=== PATIENT | male | born 1965 | race Caucasian/White ===

== ENCOUNTER 2016-11-06 11:48 | Emergency (ER) | payer OTHER ==
[~2016-11-06] VITALS: Ht 162.6 cm; Wt 73.3 kg
[2016-11-06 11:55] VITALS: TEMP 36.9; Ht 162.6 cm; Wt 73.3 kg
--- NOTE | 2016-11-06 12:33 | EMERGENCY ROOM VISIT NOTE ---
History Report prepared by Kassie: Denisa Allison Under the Supervision of: Dr. Sorin Brunner M.D. First contact with patient: 12:17 Chief Complaint: DIZZY Stated Complaint: DIZZY Nursing Triage Summary: PT ambulatory to triage states he went to work and around 1000 he became sweaty and shakey. Pt associated dizziness at the same time. Pt cheeks are flushed. Pt fiance states "he vegges in and out and it speech is slurred, well slow, he doesn't have his teeth in" Pt states he has not eaten today. Did have water. Denies DM History of Present Illness The patient is a 51 year old male who presents to the Emergency Room with complaints of sudden dizziness that began this morning while at work. 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 He states that began feeling wobbly and near syncopal. The patient notes that his symptoms are worsened when he moves to the left. He describes the discomfort as a room spinning sensation. The patient states that he developed swelling and erythema under his bilateral eyes. He states that he was diaphoretic during the episode. The patient states that he developed nausea, but denies any vomiting. He notes blurred vision. The patient states that en-route to the emergency department he noticed left sided chest pain. The patient and his significant other note that the patient's language appears more raspy today than normal. The patient denies any trauma. He denies any sore throat or difficulty swallowing. The patient reports recent memory troubles. The patient reports a headache as a 4/ 10 in severity. Source of History: patient, spouse/significant other Onset: this morning while at work Position: other (global) Quality: other (dizziness) Timing: other (sudden) Associated Symptoms: + headache, + chest pain, + nausea, No vomiting Note: Associated Symptoms: wobbly, near syncopal, room spinning sensation, blurred vision, langue is raspy, memory troubles Review of Systems See HPI for pertinent positives & negatives. A total of 10 systems reviewed and were otherwise negative. Past Medical & Surgical Medical Problems: (1) Hypertension Old medical records were attempted to be reviewed but there are no old records at this hospital. Nurse's notes were reviewed and I agree with. No history of cardiac disease or diabetes. He does have a history of high blood pressure and anxiety but has not been taking his meds for about a year and a half Family History Hypertension Social History Smoking Status: Never Smoker Alcohol Use: none Marital Status: in relationship Occupation Status: employed Current/Historical Medications Scheduled PRN Lorazepam (Ativan), 1 MG PO Q8 PRN for Anxiety/Agitation Allergies Coded Allergies: Penicillins (Unverified Allergy, Intermediate, BREAKS OUT IN HIVES, ) Physical Exam Vital Signs Date Time Temp Pulse Resp B/P (MAP) Pulse Ox O2 Delivery O2 Flow Rate FiO2 11/06/16 17:35 87 20 159/103 97 11/06/16 16:22 83 11/06/16 15:38 86 18 164/110 99 11/06/16 13:45 89 22 159/88 98 Room Air 11/06/16 12:19 85 11/06/16 11:55 36.9 108 20 146/95 97 Room Air Physical Exam General: Well developed well nourished, non-ill appearing middle aged male in no acute distress, breathing comfortably on room air. Normal speech HEENT: Mild swelling and tenderness under eyes and cheeks bilaterally. Pupils are equal round and reactive to light. Extraocular movements are intact. Oropharynx is pink with moist mucous membranes. No swelling of the mouth lips or tongue. Neck: Supple with a midline trachea. No meningeal signs or stiffness, no JVD or bruits. No Stridor. Chest: Clear to auscultation bilaterally. No wheezes or rhonchi. No increased work of breathing. Heart: regular rate and rhythm. Abdomen: Soft nontender, nondistended without rebound guarding or rigidity. Extremities: No cyanosis clubbing or edema. No calf tenderness or assymetry Spine/Back. Non tender to palpation. No CVA tenderness Skin: Good turgor without rashes. Neurologic exam: Cranial nerves two through 12 are intact. Motor and sensation are intact and symmetrical throughout. Finger to nose intact. Medical Decision & Procedures ER Provider Diagnostic Interpretation: Radiology results as stated below per my review and radiologist interpretation: HEAD CT NONCONTRAST CT DOSE: 580.54 mGy.cm HISTORY: Mental status change dizzy, forgetful TECHNIQUE: Multiaxial CT images of the head were performed without the use of intravenous contrast. Comparison: None. Findings: The paranasal sinuses and mastoid air cells are clear. The calvarium and skull base are intact. The ventricles and sulci are within normal limits. There is no mass, hematoma, midline shift, or acute infarct. Impression: No acute intracranial abnormality. Electronically signed by: Satnam Cobb M.D. 11/06/2016 1:27 PM Dictated Date/Time: 11/06/2016 1:26 PM CHEST ONE VIEW PORTABLE CLINICAL HISTORY: Atypical chest pain. Dizziness. COMPARISON STUDY: No previous studies for comparison. FINDINGS: The cardiac and mediastinal contours are normal. There is no evidence of focal pulmonary consolidation. There is no evidence of failure. No pleural effusions are visualized.[ IMPRESSION: No active disease in the chest. Electronically signed by: Julien Howell M.D. 11/06/2016 1:03 PM Dictated Date/Time: 11/06/2016 1:03 PM Laboratory Results 11/06/16 13:00 Red Blood Count 5.54, Mean Corpuscular Volume 83.6, Mean Corpuscular Hemoglobin 29.8, Mean Corpuscular Hemoglobin Concent 35.6, Mean Platelet Volume 8.8, Neutrophils (%) (Auto) 66.4, Lymphocytes (%) (Auto) 24.8, Monocytes (%) (Auto) 7.9, Eosinophils (%) (Auto) 0.5, Basophils (%) (Auto) 0.2, Neutrophils # (Auto) 2.86, Lymphocytes # (Auto) 1.07, Monocytes # (Auto) 0.34, Eosinophils # (Auto) 0.02, Basophils # (Auto) 0.01 11/06/16 13:00 Test 11/06/16 12:03 11/06/16 13:00 11/06/16 13:11 11/06/16 13:12 Bedside Glucose 97 mg/dl (70-99) White Blood Count 4.31 K/uL (4.8-10.8) Red Blood Count 5.54 M/uL (4.7-6.1) Hemoglobin 16.5 g/dL (14.0-18.0) Hematocrit 46.3 % (42-52) Mean Corpuscular Volume 83.6 fL (80-100) Mean Corpuscular Hemoglobin 29.8 pg (25-34) Mean Corpuscular Hemoglobin Concent 35.6 g/dl (32-36) Platelet Count 221 K/uL (130-400) Mean Platelet Volume 8.8 fL (7.4-10.4) Neutrophils (%) (Auto) 66.4 % Lymphocytes (%) (Auto) 24.8 % Monocytes (%) (Auto) 7.9 % Eosinophils (%) (Auto) 0.5 % Basophils (%) (Auto) 0.2 % Neutrophils # (Auto) 2.86 K/uL (1.4-6.5) Lymphocytes # (Auto) 1.07 K/uL (1.2-3.4) Monocytes # (Auto) 0.34 K/uL (0.11-0.59) Eosinophils # (Auto) 0.02 K/uL (0-0.5) Basophils # (Auto) 0.01 K/uL (0-0.2) RDW Standard Deviation 39.4 fL (36.4-46.3) RDW Coefficient of Variation 13.0 % (11.5-14.5) Immature Granulocyte % (Auto) 0.2 % Immature Granulocyte # (Auto) 0.01 K/uL (0.00-0.02) Anion Gap 10.0 mmol/L (3-11) Est Creatinine Clear Calc Drug Dose 83.4 ml/min Estimated GFR () 106.2 Estimated GFR (Non- 91.7 BUN/Creatinine Ratio 14.0 (10-20) Calcium Level 9.0 mg/dl (8.5-10.1) Total Bilirubin 1.0 mg/dl (0.2-1) Direct Bilirubin 0.2 mg/dl (0-0.2) Aspartate Amino Transf (AST/SGOT) 24 U/L (15-37) Alanine Aminotransferase (ALT/SGPT) 32 U/L (12-78) Alkaline Phosphatase 67 U/L (45-117) Total Protein 7.6 gm/dl (6.4-8.2) Albumin 4.4 gm/dl (3.4-5.0) Lipase 199 U/L (73-393) Thyroid Stimulating Hormone (TSH) 0.826 uIu/ml (0.300-4.500) Bedside Lactic Acid Venous 0.67 mmol/L (0.90-1.70) Bedside Troponin I < 0.030 ng/ml (0-0.045) Laboratory studies as stated above per my review. Medications Administered Medications (Trade) Dose Ordered Sig/Gio Route Start Time Stop Time Status Last Admin Dose Admin Lorazepam (Ativan Tab) 1 mg NOW STAT SL 11/06/16 15:04 11/06/16 15:05 DC 11/06/16 15:37 1 MG ECG Indication: other (dizziness) Rate (beats per minute): 72 Rhythm: normal sinus Findings: no acute ischemic change, no ectopy Comparison ECG Date: no prior available ED Course 1220: Past medical records reviewed. The patient was evaluated in room C4, and a complete history and physical examination were performed. 1455: I reevaluated the patient and he states that he has been feeling increasingly anxious recently because he stopped his blood pressure medications and anxiety medications. I discussed all the exam findings with him and I discussed the treatment plan. He will receive some Ativan. 1504: Ordered Ativan Tab 1 mg SL. 1609: I reevaluated the patient and he is feeling much better and resting comfortably. 1650: I reevaluated the patient and he is feeling much better. He notes that he was in the heat a lot today. I discussed all exam findings with him and I discussed the treatment plan. He verbalized complete understanding and agreement. He is ready to go home. Medical Decision Differentials include, but are not limited to; vertigo, arrhythmia, intracranial process, infection, allergic reaction, electrolyte or metabolic abnormality. Blood pressure Screening: Patient was found to have an elevated blood pressure that is likely situational, but was referred to their primary doctor for recheck and further treatment. Medication Reconciliation: I attest that I have personally reviewed the patient' s current medication list. This patient comes in as described above. He felt dizzy today. He was at work there is no exposure to chemicals or carbon monoxide. He was out in the heat. He does have some redness under his eyes which may be sunburned there is no welding. There are no grinding or any activity where he could've gotten any particles and his eyes. He may have had some vague chest pain which resolved quickly. He have a history of anxiety but has not been taking his medications. He also throughout blood pressure has not been taking his medications. IV access was established. He was given Ativan 1 mg was much more comfortable while he was in the ER. EKG was obtained does not show any changes to suggest acute coronary syndrome or arrhythmia. Has no acute electrolyte or metabolic abnormalities. Chest x-ray does not suggest congestive heart failure, arrhythmia, pneumonia or pneumothorax. He has no findings to suggest diabetes or thyroid disease. He has nothing to suggest an acute stroke. The more I talked the to the patient and his the more there was an anxiety component. He also tells me he was out in the sun and there could be a component related to that he is some redness under his eyes and it may be more of a sunburn it is tender there is no evidence of cellulitis. There are no lesions. At this point there is nothing to suggest a stroke or acute cardiac event and he seems of gotten better. I will have him rest and drink plenty of fluids. He can use Ativan 1 mg every 8 hours if needed. I encouraged close follow-up with his regular doctor he may need to be started back on his blood pressure medication get blood pressure recheck at least when he is not feeling anxious. He should return if: worsening of symptoms, fever or chills, any new problems or concerns. He is happy with the plan and discharged to home. Impression Primary Impression: Dizziness Additional Impression: Anxiety Scribe Attestation The scribe's documentation has been prepared under my direction and personally reviewed by me in its entirety. I confirm that the note above accurately reflects all work, treatment, procedures, and medical decision making performed by me. Departure Information Dispostion Home / Self-Care Prescriptions Lorazepam (ATIVAN) 1 Mg Tab 1 MG PO Q8 Y for Anxiety/Agitation, #10 TAB Prov: Sorin Brunner M.D. 11/06/16 Referrals No Doctor, Assigned (PCP) Forms HOME CARE DOCUMENTATION FORM, IMPORTANT VISIT INFORMATION Patient Instructions My [facility] Additional Instructions Rest. Drink plenty of fluids. Return if: Worsening of symptoms, chest pain, dizziness, fever or chills, any new problems or concerns. May use Ativan 1 mg every 8 hours if needed for anxiety or stress Ativan make you drowsy do not take before drinking, driving, working Try to minimize her Ativan usage Follow-up with your doctor for blood pressure recheck as your blood pressure was high today and you may need further chronic medications for anxiety or stress. Problem Qualifiers
--- NOTE | 2016-11-06 13:05 | DIAGNOSTIC IMAGING REPORT ---
CHEST ONE VIEW PORTABLE CLINICAL HISTORY: Atypical chest pain. Dizziness. COMPARISON STUDY: No previous studies for comparison. FINDINGS: The cardiac and mediastinal contours are normal. There is no evidence of focal pulmonary consolidation. There is no evidence of failure. No pleural effusions are visualized.[ IMPRESSION: No active disease in the chest. Electronically signed by: Julien Howell M.D. 11/06/2016 1:03 PM Dictated Date/Time: 11/06/2016 1:03 PM
[2016-11-06 13:17] LABS: BASO % 0.2 %; EOS % 0.5 %; HEMATOCRIT 46.3 % (42-52); IG% 0.2 %; LYMPH % 24.8 %; LYMPH ABS # 1.07 K/uL (1.2-3.4); MEAN CELL VOLUME 83.6 fL (80-100); MEAN CORPUSCULAR HEMOGLOBIN 29.8 pg (25-34); MEAN CORPUSCULAR HGB CONC 35.6 g/dl (32-36); MEAN PLATELET VOLUME 8.8 fL (7.4-10.4); MONO % 7.9 %; NEUT % 66.4 %; PLATELET COUNT 221 K/uL (130-400); RED BLOOD COUNT 5.54 M/uL (4.7-6.1); WHITE BLOOD COUNT 4.31 K/uL (4.8-10.8)
[2016-11-06 13:18] LABS: BASO ABS # 0.01 K/uL (0-0.2); COMPLETE YES
--- NOTE | 2016-11-06 13:28 | DIAGNOSTIC IMAGING REPORT ---
HEAD CT NONCONTRAST CT DOSE: 580.54 mGy.cm HISTORY: Mental status change dizzy, forgetful TECHNIQUE: Multiaxial CT images of the head were performed without the use of intravenous contrast. Comparison: None. Findings: The paranasal sinuses and mastoid air cells are clear. The calvarium and skull base are intact. The ventricles and sulci are within normal limits. There is no mass, hematoma, midline shift, or acute infarct. Impression: No acute intracranial abnormality. Electronically signed by: Satnam Cobb M.D. 11/06/2016 1:27 PM Dictated Date/Time: 11/06/2016 1:26 PM
[2016-11-06 13:40] LABS: CREATININE 0.95 mg/dl (0.60-1.40); POTASSIUM 3.8 mmol/L (3.5-5.1)
[2016-11-06 13:50] LABS: THYROID STIMULATING HORMONE 0.826 uIu/ml (0.300-4.500)
[2016-11-06] MEDS ORDERED: LORAZEPAM 1 MG TAB SL STA (15:04)
[2016-11-06] MEDS ORDERED: ATV/1 PO (16:55)
[2016-11-06 17:35] VITALS: BP 159/103; PULSE 87; O2SAT 97
== END 2016-11-06 17:39 | disposition home or self-care (01) ==
LOC: C.EDB 11:52 → C.EDC 17:39
DX: R42 Dizziness and giddiness (principal); F41.9 Anxiety disorder, unspecified; I10 Essential (primary) hypertension; Z88.0 Allergy status to penicillin; Z82.49 Family history of ischemic heart disease and other diseases of the circulatory system